=== PATIENT | male | born 1965 | race Caucasian/White ===

== ENCOUNTER 2023-08-29 17:57 | Emergency (ER) | payer MEDICARE ==
[~2023-08-29] VITALS: Ht 182.9 cm; Wt 136.4 kg
[2023-08-29 18:13] VITALS: TEMP 98
[2023-08-29 19:19] VITALS: BP 136/68; PULSE 68
== END 2023-08-29 19:19 | disposition home or self-care (01) ==
LOC: COL.ER 17:57
DX: T82.898A Other specified complication of vascular prosthetic devices, implants and grafts, initial encounter (principal)

== ENCOUNTER 2023-09-01 08:06 | Outpatient (CLI) | payer MEDICARE ==
[~2023-09-01] VITALS: Ht 182.9 cm; Wt 138.7 kg
[2023-09-01] MEDS ORDERED: NS Flush 10 ML SYRINGE (PICC Line - 10 mL PRN) ICA (08:30)
[2023-09-01] MEDS ORDERED: NARCAN4 MG NS (08:41)
[2023-09-01] MEDS ORDERED: CEFAZOLIN1 G1 IV (08:42)
[2023-09-01] MEDS ORDERED: TYLENOL 500MG500 MG PO (08:42)
[2023-09-01] MEDS ORDERED: ALAVERT D-12 HO1 T12 PO (08:43)
[2023-09-01] MEDS ORDERED: VITAMIND3 5000 PO (08:43)
[2023-09-01] MEDS ORDERED: VITAMINC1000TA (08:44)
[2023-09-01] MEDS ORDERED: VITAMIN B12 781 TAB PO (08:44)
[2023-09-01] MEDS ORDERED: LOPROX CR 15GM TOP (08:45)
[2023-09-01] MEDS ORDERED: NIZORAL CREAM15 GM TP (08:45)
[2023-09-01] MEDS ORDERED: PEPCID40 MG PO (08:45)
[2023-09-01] MEDS ORDERED: ROBAXIN 50500 MG/TAB PO (08:46)
[2023-09-01] MEDS ORDERED: TEMOVATE50TS TOP (08:47)
[2023-09-01] MEDS ORDERED: BETAPACE 120MG120 MG PO (08:48)
[2023-09-01] MEDS ORDERED: PRIL40 PO (08:49)
[2023-09-01] MEDS ORDERED: CELEBREX 200MG200 MG PO (08:50)
[2023-09-01] MEDS ORDERED: SINGULAIR 110 MG/TAB PO (08:51)
[2023-09-01] MEDS ORDERED: BUSPAR10 MG PO (08:52)
[2023-09-01] MEDS ORDERED: DESYREL 50MG50 MG PO (08:52)
[2023-09-01] MEDS ORDERED: TEMOVATE OINT30 GM TOP (08:53)
[2023-09-01] MEDS ORDERED: NEURONTIN600 MG/TAB PO (08:53)
[2023-09-01] MEDS ORDERED: FLONASEALLERGY NS (08:54)
[2023-09-01] MEDS ORDERED: COENZYME Q-10100 M1 PO (08:54)
[2023-09-01 08:56] VITALS: BP 132/64; PULSE 60; TEMP 97.9
[2023-09-01] MEDS ORDERED: NS Flush 10 ML SYRINGE (PICC Line - 10 mL Daily if not in use) ICA SCH (09:00)
[2023-09-01 16:05] VITALS: BP 135/72; PULSE 60
== END 2023-09-01 16:06 | disposition home or self-care (01) ==
LOC: EUO 08:06
DX: Z79.2 Long term (current) use of antibiotics (principal)
CPT/HCPCS: C1751

== ENCOUNTER → 2023-09-20 | Outpatient (CLI) | payer MEDICARE ==
[~2023-09-20] VITALS: Ht 182.9 cm; Wt 140.0 kg
[~2023-09-20] MED LIST: ALAVERT D-12 HO1 T12 PO; BETAPACE 120MG120 MG PO; BUSPAR10 MG PO; CEFAZOLIN1 G1 IV; CELEBREX 200MG200 MG PO; COENZYME Q-10100 M1 PO; DESYREL 50MG50 MG PO; FLONASEALLERGY NS; LOPROX CR 15GM TOP; MERREM IV1 GM IV; Meropenem 1 G in Water For Injection,Sterile 20 ML IV SCH; NARCAN4 MG NS; NEURONTIN600 MG/TAB PO; NIZORAL CREAM15 GM TP; PEPCID40 MG PO; PRIL40 PO; ROBAXIN 50500 MG/TAB PO; SINGULAIR 110 MG/TAB PO; TEMOVATE OINT30 GM TOP; TEMOVATE50TS TOP; TYLENOL 500MG500 MG PO; VITAMIN B12 781 TAB PO; VITAMINC1000TA; VITAMIND3 5000 PO
[2023-09-20 15:00] VITALS: BP 123/60; PULSE 78; TEMP 98.4
--- NOTE | 2023-09-20 15:06 | NUR ---
pt recieved first dose 2 gm of Meropenem IV, tolerated well, no c/o after infusion, pt stayed approx. 30 min then discharged to home.
== END ==
LOC: EUO 14:00
DX: A18.01 Tuberculosis of spine (principal); G04.91 Myelitis, unspecified
CPT/HCPCS: J2185

== ENCOUNTER 2024-04-06 07:40 | Outpatient (RCR) | payer MEDICARE ==
[2024-04-06] VITALS (10 sets, daily range): BP systolic 100–121; BP diastolic 42–73; PULSE 60–62; TEMP 97.6–98.6
[~2024-04-06 07:40] MED LIST changes: +FERROUSAL325 MG PO; -Meropenem 1 G in Water For Injection,Sterile 20 ML IV SCH
[2024-04-06] MEDS ORDERED: NS 250 ML IV SCH (09:30)
[2024-04-06] MEDS ORDERED: diphenhydrAMINE 25 MG CAP PO SCH (09:30)
[2024-04-06] MEDS ORDERED: Acetaminophen 325 MG TAB PO SCH (09:30)
== END 2024-04-06 14:32 ==
LOC: EUO 07:40
DX: D61.818 Other pancytopenia (principal)
CPT/HCPCS: J7050; P9040

== ENCOUNTER 2024-04-27 10:00 | Outpatient (RCR) | payer MEDICARE ==
[2024-04-25] VITALS (10 sets, daily range): BP systolic 110–129; BP diastolic 54–82; PULSE 60–72; TEMP 97.5–97.9
[~2024-04-27] VITALS: Ht 182.9 cm; Wt 146.8 kg
[~2024-04-27 10:00] MED LIST changes: +Acetaminophen 325 MG TAB PO SCH; +CLARITIN 1010 MG/TAB PO; +DOXYCYCLINE 10100 MG PO; +NS 250 ML IV SCH; +diphenhydrAMINE 25 MG CAP PO SCH
[2024-04-27 10:07] VITALS: BP 128/80; PULSE 66; TEMP 98
[2024-04-27 10:17] VITALS: BP 126/67; PULSE 65; TEMP 98
[2024-04-27 10:33] VITALS: BP 128/65; PULSE 64; TEMP 97.8
[2024-04-27 10:48] VITALS: BP 133/68; PULSE 60; TEMP 98.1
[2024-04-27 11:18] VITALS: BP 131/62; PULSE 61; TEMP 97.8
[2024-04-27 12:02] VITALS: BP 124/70; PULSE 60; TEMP 97.8
--- NOTE | 2024-04-27 12:15 | NUR ---
Pt tolerated blood transfusion without issue. IV DC'd, site wrapped with coban. Pt exits dept with wheeled walker. Free of complaints at discharge.
== END 2024-04-27 12:15 | disposition home or self-care (01) ==
LOC: EUO 10:00
DX: D61.818 Other pancytopenia (principal)
CPT/HCPCS: J7050; P9035; P9040

== ENCOUNTER 2024-06-01 12:28 | Outpatient (RCR) | payer MEDICARE ==
[~2024-06-01] VITALS: Ht 182.9 cm; Wt 143.9 kg
[2024-06-01] VITALS (13 sets, daily range): BP systolic 101–133; BP diastolic 56–84; PULSE 60–69; TEMP 97.5–98.5
[~2024-06-01 12:28] MED LIST changes: -Acetaminophen 325 MG TAB PO SCH; +NPLATE250 MCG SQ; -NS 250 ML IV SCH; +[UNRECOGNIZED DRUG - OTHER] SQ; -diphenhydrAMINE 25 MG CAP PO SCH
[2024-06-01] MEDS ORDERED: diphenhydrAMINE 25 MG CAP PO SCH (12:45)
[2024-06-01] MEDS ORDERED: NS 250 ML IV SCH (12:45)
[2024-06-01] MEDS ORDERED: Acetaminophen 325 MG TAB PO SCH (12:45)
== END 2024-06-01 18:43 | disposition home or self-care (01) ==
LOC: EUO 12:28
DX: D61.818 Other pancytopenia (principal); D69.3 Immune thrombocytopenic purpura
CPT/HCPCS: J7050; P9035; P9040

== ENCOUNTER 2024-06-04 16:42 | Outpatient (RCR) | payer MEDICARE ==
[~2024-06-04] VITALS: Ht 182.9 cm; Wt 147.0 kg
[2024-06-04] MEDS ORDERED: Acetaminophen 325 MG TAB PO SCH (16:45)
[2024-06-04] MEDS ORDERED: NS 250 ML IV SCH (16:45)
[2024-06-04] MEDS ORDERED: diphenhydrAMINE 25 MG CAP PO SCH (16:45)
[2024-06-04 17:31] VITALS: BP 124/85; PULSE 70; TEMP 98.2
[2024-06-04 17:46] VITALS: BP 132/72; PULSE 66; TEMP 98
[2024-06-04 18:16] VITALS: BP 134/78; PULSE 64; TEMP 98.1
--- NOTE | 2024-06-04 19:00 | NUR ---
PT TOLERATED INFUSION WELL. VS REMAINED WITHIN NORMAL LIMITS AND PT REMAINED FREE FROM SIGNS AND SYMPTOMS OF HEMOLYTIC REACTION. PT AMBULATED TO MAIN LOBBY INDEPENDENTLY UPON DISCHARGE AND IV WAS DISCONTINUED. PT FREE FROM ACUTE CONCERNS AND COMPLAINTS.
[2024-06-04 19:05] VITALS: BP 131/80; PULSE 68; TEMP 98
== END 2024-06-04 19:09 | disposition home or self-care (01) ==
LOC: EUO 16:42
DX: D69.3 Immune thrombocytopenic purpura (principal)
CPT/HCPCS: J7050; P9035

== ENCOUNTER 2024-06-08 15:33 | Outpatient (RCR) | payer MEDICARE ==
[~2024-06-08] VITALS: Ht 182.9 cm; Wt 147.0 kg
[2024-06-08] MEDS ORDERED: diphenhydrAMINE 25 MG CAP PO SCH (15:45)
[2024-06-08] MEDS ORDERED: Acetaminophen 325 MG TAB PO SCH (15:45)
[2024-06-08] MEDS ORDERED: NS 250 ML IV SCH (15:45)
[2024-06-08 16:18] VITALS: BP 119/44; PULSE 64; TEMP 98.8
[2024-06-08 16:45] VITALS: BP 119/67; PULSE 65; TEMP 97.8
[2024-06-08 17:00] VITALS: BP 116/66; PULSE 63; TEMP 98
[2024-06-08 17:30] VITALS: BP 122/77; PULSE 75; TEMP 97.7
[2024-06-08 17:50] VITALS: BP 132/74; PULSE 63; TEMP 97.9
== END 2024-06-08 17:57 | disposition home or self-care (01) ==
LOC: EUO 15:33
DX: M46.26 Osteomyelitis of vertebra, lumbar region (principal)
CPT/HCPCS: J7050; P9035

== ENCOUNTER 2024-06-12 13:52 | Outpatient (RCR) | payer MEDICARE ==
[~2024-06-12] VITALS: Ht 182.9 cm; Wt 147.3 kg
[2024-06-12] VITALS (14 sets, daily range): BP systolic 113–147; BP diastolic 55–84; PULSE 58–65; TEMP 97.9–98.6
[~2024-06-12 13:52] MED LIST changes: +Acetaminophen 325 MG TAB PO SCH; +NS 250 ML IV SCH; +diphenhydrAMINE 25 MG CAP PO SCH
== END 2024-06-12 19:57 | disposition home or self-care (01) ==
LOC: EUO 13:52
DX: D69.3 Immune thrombocytopenic purpura (principal); D61.818 Other pancytopenia
CPT/HCPCS: J7050; P9035; P9040

== ENCOUNTER 2024-06-15 15:31 | Outpatient (RCR) | payer MEDICARE ==
[2024-06-15 14:54] VITALS: BP 109/59; PULSE 62; TEMP 97.8
[2024-06-15 15:09] VITALS: BP 116/66; PULSE 65; TEMP 97.7
[2024-06-15 15:39] VITALS: BP 120/67; PULSE 64; TEMP 97.9
[2024-06-15 16:35] VITALS: BP 128/81; PULSE 62; TEMP 98
--- NOTE | 2024-06-15 16:55 | NUR ---
PT TOLERATED INFUSION WELL. VS REMAINED WITHIN NORMAL LIMITS. PT REMAINED FREE FROM SIGNS AND SYMPTOMS OF HEMOLYTIC REACTION. PT AMBULATED TO MAIN LOBBY WITH WALKER. IV DISCONTINUED UPON DISCHARGE. PT FREE FROM ACUTE CONCERNS AND COMPLAINTS.
== END 2024-06-15 16:55 | disposition home or self-care (01) ==
LOC: EUO 15:31
DX: D69.3 Immune thrombocytopenic purpura (principal)
CPT/HCPCS: J7050; P9035

== ENCOUNTER 2024-06-19 11:12 | Outpatient (RCR) | payer MEDICARE ==
[2024-06-19] VITALS (10 sets, daily range): BP systolic 125–165; BP diastolic 60–74; PULSE 52–74; TEMP 97.7–98.4
[~2024-06-19 11:12] MED LIST changes: -Acetaminophen 325 MG TAB PO SCH; -NS 250 ML IV SCH; -diphenhydrAMINE 25 MG CAP PO SCH
[2024-06-19] MEDS ORDERED: Acetaminophen 325 MG TAB PO SCH (11:30)
[2024-06-19] MEDS ORDERED: diphenhydrAMINE 25 MG CAP PO SCH (11:30)
[2024-06-19] MEDS ORDERED: NS 250 ML IV SCH (11:30)
--- NOTE | 2024-06-19 13:01 | NUR ---
Platelet verified with Mecca Gann Rn.
== END 2024-06-19 17:24 ==
LOC: EUO 11:12
DX: D61.818 Other pancytopenia (principal); D69.3 Immune thrombocytopenic purpura
CPT/HCPCS: J7050; P9016; P9035; P9040